=== PATIENT | female | born 1975 | race Caucasian/White ===

== ENCOUNTER 2020-04-16 16:03 | Outpatient (CLI) | payer BC, OTHER, SELFPAY ==
--- NOTE | ~2020-04-16 | MM_ITS ---
CORRECTED REPORT DESCRIPTION CHANGE. SEE BOLD/ITALIC TEXT BELOW. 04/17/20 sef EXAMINATION: MM screening nikunj BI w pancho HISTORY: Screening mammogram TECHNIQUE: Craniocaudal and mediolateral oblique 3-D tomosynthesis images were obtained and synthetic 2-D images were generated. CAD analysis was submitted and interpreted. COMPARISON: No prior mammogram is available for comparison at this institution. BREAST PARENCHYMAL COMPOSITION: There are scattered areas of fibroglandular density. FINDINGS: There is a biopsy marker associated with an approximately 12 mm circumscribed low-density mass in the lower inner quadrant of the right breast. This was reportedly benign. Minimal benign calcification of the breast. There is no evidence of suspicious mass, calcification, or architectural distortion to suggest malignancy in either breast.. IMPRESSION: 1. No mammographic evidence of malignancy. 2. Recommend routine screening mammography in one year. BI-RADS Category 2: Benign finding(s). Reviewed, dictated and finalized at location A. MTDD
== END 2020-04-16 16:04 | disposition home or self-care (01) ==
LOC: ANHIMG 16:04
PROVIDERS: PCP Family Medicine; Visit Provider Family Medicine
DX: Z12.31 Encounter for screening mammogram for malignant neoplasm of breast (principal)
CPT/HCPCS: 77063; 77067

== ENCOUNTER 2020-09-04 12:58 | Outpatient (CLI) | payer BC, OTHER, SELFPAY ==
--- NOTE | ~2020-09-04 | XR_ITS ---
XR_[id number]_CR 09/04/2020 13:39 Indication: Neck pain Procedure: 4 view cervical spine Comparison: No prior studies for comparison. Findings: There is multilevel facet hypertrophy. There is mild multilevel uncinate hypertrophy. Hui l anatomic alignment of the cervical spine. No fracture or traumatic malalignment. No prevertebral so ft tissue swelling. Odontoid process within normal limits. Lateral masses are normally aligned. Impression: 1: Mild cervical spondylosis. Reviewed, dictated and finalized at location B. Impression: 1: Mild cervical spondylosis.
--- NOTE | ~2020-09-04 | XR_ITS ---
EXAMINATION: XR shoulder RT min 2V DATE: 09/04/2020 13:40 INDICATION: Right shoulder pain. TECHNIQUE: 4 views of right shoulder were obtained. COMPARISON: Right shoulder radiographs 06/13/2019 FINDINGS: Bone alignment is normal. No fracture. Joint spaces are well maintained. IMPRESSION: 1. Normal right shoulder. Reviewed, dictated and finalized at location A. IMPRESSION: 1. Normal right shoulder.
== END 2020-09-04 12:59 | disposition home or self-care (01) ==
PROVIDERS: PCP Family Medicine; Visit Provider Physician Assistant
DX: M25.511 Pain in right shoulder (principal); M47.892 Other spondylosis, cervical region
CPT/HCPCS: 72040; 73030

== ENCOUNTER 2020-11-12 09:10 | Outpatient (CLI) | payer BC, OTHER, SELFPAY ==
[2020-11-12 09:42] LABS: Basophils Absolute Auto 0.1 K/mm3 (0.0-0.1); Basophils Percent Auto 0.6 % (0.2-1.2); Eosinophils Absolute Auto 0.3 K/mm3 (0-0.3); Hemoglobin 13.6 g/dL (12.0-15.0); Immature Granulocyte Absolute 0.04 K/mm3 (0.00-0.031); Immature Granulocyte Percent A 0.4 % (0-0.5); Lymphocytes Absolute Auto 4.04 K/mm3 (0.9-3.2); Lymphocytes Percent Auto 39.8 % (18.3-44.2); Mean Corpuscular HGB Conc 33.2 g/dl (32-36); Mean Corpuscular Hemoglobin 30.7 pg (26-34); Mean Corpuscular Volume 92.6 fl (80-100); Mean Platelet Volume 11.1 fl (7.4-10.4); Monocytes Percent Auto 10.1 % (2.6-8.5); Neutrophils Absolute Auto 4.7 K/mm3 (1.3-6.7); Neutrophils Percent Auto 46.1 % (45.5-73.1); Platelet Count Result 267 k/mm3 (150-375); Red Blood Count 4.43 M/mm3 (4.2-5.4); Red Cell Distribution Width 12.1 % (11.5-14.5); White Blood Count 10.1 K/mm3 (4.5-10.0)
[2020-11-12 09:47] LABS: Add Urine Microscopic? YES; Appearance Urine Clear (Clear); Bacteria Urine 2+ /hpf; Bilirubin Urine Negative (Negative); Blood Urine Negative (Negative); Color Urine Straw (Yellow); Glucose Urine UA Negative (Negative); Ketones Urine Negative (Negative); Leukocyte Esterase Ur Trace LEU/UL (NEGATIVE); Mucus Urine Rare /lpf; Nitrate Urine Negative (Negative); Protein Urine Negative (Negative); RBC Urine 0-2 /hpf (0-2); Specific Grav Ur 1.011 (1.001-1.035); Squamous Epithelial Cell Urine Many /hpf (Few); Urobilinogen Urine Negative mg/dL (<2.0)
[2020-11-12 09:55] LABS: Alanine Aminotransferase 31 U/L (4-35); Albumin Level 4.1 g/dL (3.5-5.1); Alkaline Phosphatase 76 U/L (38-126); Anion Gap 7 mmol/L (8-16); Aspartate Amino Transferase 29 U/L (14-36); Bilirubin,Total 0.4 mg/dL (0.2-1.3); Blood Urea Nitrogen 17 mg/dL (7-17); Calcium 9.4 mg/dL (8.4-10.2); Carbon Dioxide 28 mmol/L (22-30); Chloride 98 mmol/L (98-107); Cholesterol 238 mg/dL (0-200); Estimated Glomerular Filt Rate > 60; Glucose 99 mg/dL (65-105); HDL Direct 45 mg/dL; Potassium 4.2 mmol/L (3.4-5.0); Sodium 133 mmol/L (137-145); Triglycerides 268 mg/dL (<150)
[2020-11-12 10:06] LABS: LDL Cholesterol Direct 169 mg/dL
== END 2020-11-12 09:11 | disposition home or self-care (01) ==
LOC: ANHLAB 09:10
PROVIDERS: PCP Family Medicine; Visit Provider Physician Assistant
DX: R53.83 Other fatigue (principal); R63.5 Abnormal weight gain; N02.9 Recurrent and persistent hematuria with unspecified morphologic changes; Z13.220 Encounter for screening for lipoid disorders
CPT/HCPCS: 36415; 80053; 80061; 81001; 84443; 85025

== ENCOUNTER 2021-06-04 10:05 | Outpatient (CLI) | payer BC, OTHER, SELFPAY ==
--- NOTE | ~2021-06-04 | MM_ITS ---
EXAMINATION: MM screening nikunj BI w pancho HISTORY: Screening mammogram TECHNIQUE: Craniocaudal and mediolateral oblique 3-D tomosynthesis images were obtained and synthetic 2-D images were generated. CAD analysis was submitted and interpreted. COMPARISON: 04/16/2020 bilateral digital screening mammogram BREAST PARENCHYMAL COMPOSITION: There are scattered areas of fibroglandular density. FINDINGS: Again noted is a biopsy marker associated with a low-density circumscribed opacity in the l ower inner quadrant of the right breast, reportedly benign, unchanged since 04/16/2020. There is no evidence of suspicious mass, calcification, or architectural distortion to suggest malig rebecca in either breast. There has been no suspicious interval change. IMPRESSION: 1. No mammographic evidence of malignancy. 2. Recommend routine screening mammography in one year. BI-RADS Category 2: Benign finding(s). Reviewed, dictated and finalized at location A.
== END 2021-06-04 10:06 | disposition home or self-care (01) ==
LOC: ANHIMG 10:09
PROVIDERS: PCP Family Medicine; Visit Provider Family Medicine
DX: Z12.31 Encounter for screening mammogram for malignant neoplasm of breast (principal)
CPT/HCPCS: 77063; 77067

== ENCOUNTER 2021-09-24 14:35 | Outpatient (CLI) | payer BC, OTHER, SELFPAY ==
[2021-09-24 15:11] LABS: Basophils Absolute Auto 0.1 K/mm3 (0.0-0.1); Basophils Percent Auto 0.8 % (0.2-1.2); Eosinophils Absolute Auto 0.2 K/mm3 (0-0.3); Eosinophils Percent Auto 2.2 % (0-4.4); Hematocrit 40.3 % (37.0-47.0); Hemoglobin 13.3 g/dL (12.0-15.0); Immature Granulocyte Absolute 0.05 K/mm3 (0.00-0.031); Immature Granulocyte Percent A 0.5 % (0-0.5); Lymphocytes Absolute Auto 4.09 K/mm3 (0.9-3.2); Mean Corpuscular Hemoglobin 30.6 pg (26-34); Mean Corpuscular Volume 92.9 fl (80-100); Mean Platelet Volume 10.8 fl (7.4-10.4); Monocytes Absolute Auto 0.7 K/mm3 (0.1-0.6); Neutrophils Absolute Auto 5.3 K/mm3 (1.3-6.7); Neutrophils Percent Auto 50.5 % (45.5-73.1); Platelet Count Result 319 k/mm3 (150-375); Red Blood Count 4.34 M/mm3 (4.2-5.4); Red Cell Distribution Width 12.5 % (11.5-14.5); White Blood Count 10.5 K/mm3 (4.5-10.0)
[2021-09-24 15:17] LABS: Add Urine Microscopic? YES; Appearance Urine Cloudy (Clear); Bacteria Urine 1+ /hpf; Bilirubin Urine Negative (Negative); Blood Urine 2+ (Negative); Color Urine Straw (Yellow); Glucose Urine UA Negative (Negative); Ketones Urine Negative (Negative); Leukocyte Esterase Ur 3+ LEU/UL (NEGATIVE); Nitrate Urine Negative (Negative); Protein Urine Negative (Negative); Squamous Epithelial Cell Urine Moderate /hpf (Few); Urobilinogen Urine Negative mg/dL (<2.0); WBC Urine 16-20 /hpf (0-3)
[2021-09-24 15:25] LABS: Alanine Aminotransferase 28 U/L (4-35); Albumin Level 4.5 g/dL (3.5-5.1); Alkaline Phosphatase 95 U/L (38-126); Anion Gap 9 mmol/L (8-16); Aspartate Amino Transferase 32 U/L (14-36); Bilirubin,Total 0.3 mg/dL (0.2-1.3); Blood Urea Nitrogen 13 mg/dL (7-17); Calcium 9.3 mg/dL (8.4-10.2); Carbon Dioxide 26 mmol/L (22-30); Chloride 103 mmol/L (98-107); Cholesterol 281 mg/dL (0-200); Estimated Glomerular Filt Rate > 60; Glucose 91 mg/dL (65-110); HDL Direct 40 mg/dL; Potassium 3.9 mmol/L (3.4-5.0); Sodium 138 mmol/L (137-145); Triglycerides 339 mg/dL (<150)
[2021-09-24 15:36] LABS: LDL Cholesterol Direct 185 mg/dL
[2021-09-24 16:10] LABS: Specific Grav Ur 1.003 (1.001-1.035)
== END 2021-09-24 14:36 | disposition home or self-care (01) ==
LOC: ANHLAB 14:38
PROVIDERS: PCP Family Medicine; Visit Provider Nurse Practitioner Gerontology
DX: G47.00 Insomnia, unspecified (principal); I12.9 Hypertensive chronic kidney disease with stage 1 through stage 4 chronic kidney disease, or unspecified chronic kidney disease; N18.9 Chronic kidney disease, unspecified
CPT/HCPCS: 36415; 80053; 80061; 81001; 84443; 85025

== ENCOUNTER 2021-09-28 12:46 | Outpatient (CLI) | payer BC, OTHER, SELFPAY | END 2021-09-28 12:47 | disposition home or self-care (01) | LOC: ANHLAB 12:47 | PROVIDERS: PCP Family Medicine; Visit Provider Nurse Practitioner Gerontology | DX: R82.90 Unspecified abnormal findings in urine (principal) | CPT/HCPCS: 87086 ==

== ENCOUNTER 2021-10-13 10:17 | Outpatient (CLI) | payer BC, OTHER, SELFPAY ==
[2021-10-13 10:46] LABS: Basophils Absolute Auto 0.1 K/mm3 (0.0-0.1); Basophils Percent Auto 0.7 % (0.2-1.2); Eosinophils Absolute Auto 0.2 K/mm3 (0-0.3); Hematocrit 39.9 % (37.0-47.0); Hemoglobin 13.1 g/dL (12.0-15.0); Immature Granulocyte Absolute 0.03 K/mm3 (0.00-0.031); Immature Granulocyte Percent A 0.3 % (0-0.5); Lymphocytes Absolute Auto 3.44 K/mm3 (0.9-3.2); Lymphocytes Percent Auto 37.3 % (18.3-44.2); Mean Corpuscular HGB Conc 32.8 g/dl (32-36); Mean Corpuscular Volume 94.5 fl (80-100); Mean Platelet Volume 10.6 fl (7.4-10.4); Monocytes Absolute Auto 0.6 K/mm3 (0.1-0.6); Monocytes Percent Auto 6.9 % (2.6-8.5); Neutrophils Absolute Auto 4.9 K/mm3 (1.3-6.7); Neutrophils Percent Auto 52.8 % (45.5-73.1); Platelet Count Result 303 k/mm3 (150-375); Red Blood Count 4.22 M/mm3 (4.2-5.4); Red Cell Distribution Width 12.4 % (11.5-14.5); White Blood Count 9.2 K/mm3 (4.5-10.0)
[2021-10-13 10:56] LABS: Alanine Aminotransferase 25 U/L (4-35); Albumin Level 4.2 g/dL (3.5-5.1); Alkaline Phosphatase 78 U/L (38-126); Anion Gap 9 mmol/L (8-16); Aspartate Amino Transferase 27 U/L (14-36); Bilirubin,Total 0.3 mg/dL (0.2-1.3); Blood Urea Nitrogen 11 mg/dL (7-17); Calcium 9.1 mg/dL (8.4-10.2); Carbon Dioxide 24 mmol/L (22-30); Chloride 102 mmol/L (98-107); Estimated Glomerular Filt Rate > 60; Glucose 97 mg/dL (65-110); Potassium 3.8 mmol/L (3.4-5.0); Sodium 135 mmol/L (137-145); Uric Acid 4.6 mg/dL (2.5-7.5)
[2021-10-13 10:57] LABS: Hemoglobin A1C 5.1 % (<5.7)
[2021-10-13 11:20] LABS: Add Urine Microscopic? NO; Appearance Urine Clear (Clear); Bilirubin Urine Negative (Negative); Blood Urine Negative (Negative); Color Urine Yellow (Yellow); Glucose Urine UA Negative (Negative); Ketones Urine Negative (Negative); Leukocyte Esterase Ur Negative LEU/UL (Negative); Nitrate Urine Negative (Negative); Protein Urine Negative (Negative); Specific Grav Ur 1.011 (1.001-1.035); Urobilinogen Urine Negative mg/dL (<2.0)
[2021-10-13 11:27] LABS: Thyroid Stimulating Hormone 0.972 uIU/mL (0.465-4.680)
== END 2021-10-13 10:18 | disposition home or self-care (01) ==
PROVIDERS: PCP Family Medicine; Visit Provider Family Medicine
DX: R63.5 Abnormal weight gain (principal); I10 Essential (primary) hypertension; E79.0 Hyperuricemia without signs of inflammatory arthritis and tophaceous disease; Z13.1 Encounter for screening for diabetes mellitus; R30.0 Dysuria
CPT/HCPCS: 36415; 80053; 81003; 83036; 84443; 84550; 85025

== ENCOUNTER 2022-01-20 01:59 | Day surgery (SDC) | payer BC, OTHER, SELFPAY ==
[2022-01-13 14:59] VITALS: BMI 33.7
--- NOTE | 2022-01-19 13:31 | WPDANESEPPF ---
Anes - Initial Pre Proc Eval Procedure: Operation Date: 01/20/22 08:30 Proposed Procedures p Esophagogastroduodenoscopy - Diogo Presley DO Date/Time: 01/19/22 13:31 Surgeon: Diogo Presley DO Pre Op Diagnosis: GERD Patient Data Age: 46 Gender: F Height: 1.6 m Weight: 86.5 kg Allergies Allergy/AdvReac Type Severity Reaction Status Date / Time codeine Allergy Mild abdominal Verified 01/20/22 09:03 pain Home Medications Medication Instructions Recorded Confirmed Type cetirizine 10 mg tablet 10 mg PO DAILY #90 tablet 08/09/21 01/13/22 Rx carisoprodol 350 mg tablet 350 mg PO BID PRN #60 tablet 09/24/21 01/13/22 Rx montelukast 10 mg tablet 10 mg PO DAILY #90 tablet 09/24/21 01/13/22 Rx zolpidem 10 mg tablet 10 mg PO .qhs PRN #30 tablet 09/24/21 01/13/22 Rx fluticasone propionate [Flonase] 2 spray INTRANASAL DAILY 01/13/22 01/13/22 History lisinopril 2.5 mg PO DAILY 01/13/22 01/13/22 History Patient hx anesthesia problems: none Family hx anesthesia problems: none Results Review: All pre-operative results and documents have been reviewed as part of the pre-operative evaluation. [facility] Past Medical History Medical History (Updated 01/19/22 @ 13:32 by Alexandre Mcgee DO) Familial hematuria Hx of skin malignancy Hyperlipidemia Insomnia Seasonal allergies Uterine fibroid Surgical History Surgical History (Updated 01/19/22 @ 13:32 by Alexandre Mcgee DO) History of Hx laparoscopic cholecystectomy Family History Family History Mother Family history of malignant neoplasm Hypertension Father Family history of congenital heart disease Grandparent Family history of congenital heart disease Heart disease Cerebrovascular accident Other Family history of arthritis Family history of cardiovascular disease Family history of hypercholesterolemia Family history of migraine headaches Family history of thyroid disease Social History Social History Social History: Smoking status: Never smoker Second hand tobacco smoke exposure: No Alcohol intake: current Drinks per week: 3 Alcohol use details: Occasionally Substance use: never Substance use type: does not use Living arrangements: with family 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 Gender identity (if verbalized by the patient): Female Sexual Orientation (if Verbalized by the Patient): Straight or Heterosexual Spiritual care concerns: No Anes - Eval Final PreProcedure Day of Procedure 01/19/22 13:31 Patient weight: obese Heart: regular rate and rhythm Lungs: clear to auscultation and normal air movement Airway: Mallampati scale class II Neurological: alert and oriented Last oral intake: >/= 8 hours ASA classification: II Emergent: no Anesthetic plan: proceed Anesthesia type and monitoring: general GIVS and standard monitoring Results Review: All pre-operative results and documents have been reviewed as part of the pre-operative evaluation. Informed Consent: The patient's anesthetic plan and its attendant risks and benefits were discussed with the patient/family/POA. Questions were solicited and answers provided to the satisfaction of the patient/family/POA.
[2022-01-20 09:05] VITALS: BP 129/78; PULSE 75; RESP 18; TEMP 36.4; O2SAT 98
[2022-01-20] MEDS: LACTATED RINGERS 1,000 ML 150 ML IV CONT (09:17)
--- NOTE | 2022-01-20 10:07 | WPDHPUPDATE1 ---
History and Physical Update Update Date/Time: 01/20/22 10:07 History and Physical has been reviewed, including an updated exam of the patient. There are NO changes in the patient's condition. Risks, benefits, and alternatives have been discussed and questions answered. Patient agrees to proceed with procedure.
[2022-01-20] MEDS: BENZOCAINE (*SP) 60 ML SPRAY CAN (HURRICAINE) 1 SPRAY MUCOUS MEM (10:15)
[2022-01-20 10:34] VITALS: BP 101/61; PULSE 80; RESP 20; O2SAT 98
[2022-01-20 10:44] VITALS: BP 111/53; PULSE 78; RESP 15; O2SAT 99
[2022-01-20 10:54] VITALS: BP 106/61; PULSE 63; RESP 14; O2SAT 98
== END 2022-01-20 11:07 | disposition home or self-care (01) ==
PROVIDERS: PCP Family Medicine; Visit Provider Surgery
PROC: 0DJ08ZZ Inspection of Upper Intestinal Tract, Via Natural or Artificial Opening Endoscopic (ICD-10-PCS; CPT 43235; principal; 2022-01-20 08:30)
DX: K21.9 Gastro-esophageal reflux disease without esophagitis (principal); K31.7 Polyp of stomach and duodenum; K29.50 Unspecified chronic gastritis without bleeding; K44.9 Diaphragmatic hernia without obstruction or gangrene; R31.9 Hematuria, unspecified; G47.00 Insomnia, unspecified
CPT/HCPCS: 43239; 87081; 88305; J2704; J7120

== ENCOUNTER 2022-07-08 14:49 | Outpatient (CLI) | payer BC, OTHER, SELFPAY ==
--- NOTE | ~2022-07-08 | MM_ITS ---
EXAMINATION: MM screening nikunj BI w pancho HISTORY: Screening TECHNIQUE: Craniocaudal and mediolateral oblique 3-D tomosynthesis images were obtained and synthetic 2-D images were generated. CAD analysis was submitted and interpreted. COMPARISON: Comparison to multiple prior studies sequentially, with oldest reviewed study dated 02/2020. BREAST PARENCHYMAL COMPOSITION: Breast composed of scattered areas of fibroglandular density FINDINGS: The right breast is stable without evidence for malignancy. There is a cluster of pleomorph ic calcifications in the upper outer quadrant of the left breast. There is a possible nodular asymmet ry laterally in the left breast on CC view adjacent to the calcifications. IMPRESSION: 1. Clustered indeterminate left breast calcifications with adjacent nodular asymmetry. 2. Additional mammographic views and possible breast ultrasound are recommended. BI-RADS Category 0: Incomplete: Needs additional imaging evaluation. Reviewed, dictated and finalized at location A. IMPRESSION: 1. Clustered indeterminate left breast calcifications with adjacent nodular asy mmetry. 2. Additional mammographic views and possible breast ultrasound are recommended . BI-RADS Category 0: Incomplete: Needs additional imaging evaluation.
== END 2022-07-08 14:50 | disposition home or self-care (01) ==
LOC: ANHIMG 14:52
PROVIDERS: PCP Family Medicine; Visit Provider Family Medicine
DX: Z12.31 Encounter for screening mammogram for malignant neoplasm of breast (principal); R92.8 Other abnormal and inconclusive findings on diagnostic imaging of breast
CPT/HCPCS: 77063; 77067

== ENCOUNTER 2022-08-08 12:45 | Outpatient (CLI) | payer BC, OTHER, SELFPAY ==
--- NOTE | ~2022-08-08 | MMUS_ITS ---
EXAMINATION: MM diagnostic nikunj LT w pancho, US breast LT limited HISTORY: Clustered indeterminate left breast calcifications with adjacent nodular asymmetry reported on 07/08/2022 screening mammogram TECHNIQUE: Additional 3-D ML tomosynthesis images of the left breast were performed and synthetic 2-D images were generated. ML, MLO and CC magnification views. CAD analysis was submitted and interprete d. High resolution breast ultrasound was performed. COMPARISON: 07/08/2022, 06/04/2021, 04/2020 screening mammogram examinations radiology FINDINGS: MAMMOGRAPHIC FINDINGS: There are scattered solitary grouped microcalcifications, some with milk of calcium ULTRASOUND: . No malignant features are evident. Ultrasound of the upper outer and lower-outer quadrants of the left breast reveals no suspicious mass or shadowing, cyst or other significant finding. IMPRESSION: 1. Benign microcalcifications; no mammographic or sonographic evidence of malignancy 2. Routine annual mammographic screening is recommended BI-RADS Category 2: Benign finding(s). Reviewed, dictated and finalized at location A. IMPRESSION: 1. Benign microcalcifications; no mammographic or sonographic evidence of malig rebecca 2. Routine annual mammographic screening is recommended BI-RADS Category 2: Benign finding(s). IMPRESSION: 1. Benign microcalcifications; no mammographic or sonographic evidence of malig reebcca 2. Routine annual mammographic screening is recommended BI-RADS Category 2: Benign finding(s).
== END 2022-08-08 12:46 | disposition home or self-care (01) ==
LOC: ANHIMG 12:46
PROVIDERS: PCP Family Medicine; Visit Provider Physician Assistant
DX: R92.8 Other abnormal and inconclusive findings on diagnostic imaging of breast (principal)
CPT/HCPCS: 76642; 77061; 77065; G0279

== ENCOUNTER 2022-12-29 08:48 | Outpatient (CLI) | payer BC, OTHER, SELFPAY ==
[2022-12-29 09:16] LABS: Basophils Absolute Auto 0.1 K/mm3 (0.0-0.1); Basophils Percent Auto 0.6 % (0.2-1.2); Eosinophils Absolute Auto 0.2 K/mm3 (0-0.3); Hemoglobin 12.6 g/dL (12.0-15.0); Immature Granulocyte Absolute 0.02 K/mm3 (0.00-0.031); Immature Granulocyte Percent A 0.2 % (0-0.5); Lymphocytes Absolute Auto 3.03 K/mm3 (0.9-3.2); Lymphocytes Percent Auto 32.7 % (18.3-44.2); Mean Corpuscular HGB Conc 32.3 g/dl (32-36); Mean Corpuscular Hemoglobin 28.6 pg (26-34); Mean Corpuscular Volume 88.4 fl (80-100); Monocytes Absolute Auto 0.8 K/mm3 (0.1-0.6); Monocytes Percent Auto 8.4 % (2.6-8.5); Neutrophils Absolute Auto 5.2 K/mm3 (1.3-6.7); Neutrophils Percent Auto 56.1 % (45.5-73.1); Platelet Count Result 291 k/mm3 (150-375); Red Blood Count 4.41 M/mm3 (4.2-5.4); Red Cell Distribution Width 12.8 % (11.5-14.5); White Blood Count 9.3 K/mm3 (4.5-10.0)
[2022-12-29 10:03] LABS: Thyroid Stimulating Hormone Reflex 0.951 uIU/mL (0.465-4.68)
[2022-12-29 10:12] LABS: Alanine Aminotransferase 25 U/L (6-35); Alkaline Phosphatase 94 U/L (38-126); Anion Gap 4 mmol/L (8-16); Aspartate Amino Transferase 27 U/L (14-36); Bilirubin,Total 0.5 mg/dL (0.2-1.3); Blood Urea Nitrogen 12 mg/dL (7-17); Carbon Dioxide 28 mmol/L (22-30); Chloride 103 mmol/L (98-107); Cholesterol 255 mg/dL (0-200); Estimated Glomerular Filt Rate > 60; Glucose 99 mg/dL (65-110); HDL Direct 36 mg/dL; Potassium 4.2 mmol/L (3.4-5.0); Sodium 135 mmol/L (137-145); Triglycerides 268 mg/dL (<150)
[2022-12-29 10:24] LABS: LDL Cholesterol Direct 149 mg/dL
== END 2022-12-29 08:49 | disposition home or self-care (01) ==
LOC: ANHLAB 08:49
PROVIDERS: PCP Family Medicine; Visit Provider Nurse Practitioner Gerontology
DX: I12.9 Hypertensive chronic kidney disease with stage 1 through stage 4 chronic kidney disease, or unspecified chronic kidney disease (principal); N18.9 Chronic kidney disease, unspecified
CPT/HCPCS: 36415; 80053; 80061; 84443; 85025

== ENCOUNTER 2023-09-01 09:53 | Outpatient (CLI) | payer BC, OTHER, SELFPAY ==
[2023-09-01 10:33] LABS: Cholesterol 239 mg/dL (0-200); HDL Direct 42 mg/dL; Triglycerides 316 mg/dL (<150)
[2023-09-01 10:37] LABS: Alanine Aminotransferase 26 U/L (6-35); Albumin Level 4.1 g/dL (3.5-5.1); Alkaline Phosphatase 86 U/L (38-126); Anion Gap 7 mmol/L (8-16); Aspartate Amino Transferase 30 U/L (14-36); Bilirubin,Total 0.5 mg/dL (0.2-1.3); Blood Urea Nitrogen 13 mg/dL (7-17); Carbon Dioxide 26 mmol/L (22-30); Chloride 102 mmol/L (98-107); Estimated Glomerular Filt Rate > 60; Glucose 93 mg/dL (65-110); Potassium 3.7 mmol/L (3.4-5.0); Sodium 135 mmol/L (137-145)
[2023-09-01 10:44] LABS: LDL Cholesterol Direct 137 mg/dL
[2023-09-01 11:06] LABS: Creatinine Urine 69.4 mg/dL
[2023-09-01 11:24] LABS: MALB Creatinine Ratio < 8.6 mg/g (0-30); Microalbumin Urine Random < 6.0 mg/L (0-16.7)
== END 2023-09-01 09:54 | disposition home or self-care (01) ==
PROVIDERS: Nurse Practitioner Gerontology; PCP Family Medicine; Visit Provider Physician Assistant
DX: N18.9 Chronic kidney disease, unspecified (principal); E78.5 Hyperlipidemia, unspecified
CPT/HCPCS: 36415; 80053; 80061; 82043

== ENCOUNTER 2023-09-15 14:48 | Outpatient (CLI) | payer BC, OTHER, SELFPAY ==
--- NOTE | ~2023-09-15 | MM_ITS ---
EXAMINATION: MM screening [facility] BI w pancho HISTORY: Screening mammogram TECHNIQUE: Craniocaudal and mediolateral oblique 3-D tomosynthesis images were obtained and synthetic 2-D images were generated. CAD analysis was submitted and interpreted. COMPARISON: 08/08/2022, 07/08/2022, 06/04/2021, 04/16/2020 BREAST PARENCHYMAL COMPOSITION: The breasts are heterogeneously dense, which may obscure small masses . FINDINGS: There is a stable mass with biopsy change in the lower inner right breast. No suspicious ma ss, calcification, or architectural distortion are identified in either breast to suggest malignancy. There has been no suspicious interval change. IMPRESSION: 1. No mammographic evidence of malignancy. 2. Recommend routine screening mammography in one year. BI-RADS Category 2: Benign finding(s). Reviewed, dictated and finalized at location A.
== END 2023-09-15 14:49 | disposition home or self-care (01) ==
LOC: ANHIMG 14:49
PROVIDERS: PCP Family Medicine; Visit Provider Physician Assistant
DX: Z12.31 Encounter for screening mammogram for malignant neoplasm of breast (principal)
CPT/HCPCS: 77063; 77067

== ENCOUNTER 2024-04-09 08:26 | Outpatient (CLI) | payer BC, OTHER, SELFPAY ==
[2024-04-09 08:44] LABS: Basophils Absolute Auto 0.1 K/mm3 (0.0-0.1); Basophils Percent Auto 0.5 % (0.2-1.2); Eosinophils Absolute Auto 0.2 K/mm3 (0-0.3); Hemoglobin 11.2 g/dL (12.0-15.0); Immature Granulocyte Absolute 0.03 K/mm3 (0.00-0.031); Immature Granulocyte Percent A 0.3 % (0-0.5); Lymphocytes Absolute Auto 2.89 K/mm3 (0.9-3.2); Lymphocytes Percent Auto 29.1 % (18.3-44.2); Mean Corpuscular HGB Conc 31.1 g/dl (32-36); Mean Corpuscular Hemoglobin 26.1 pg (26-34); Mean Corpuscular Volume 83.9 fl (80-100); Mean Platelet Volume 11.4 fl (7.4-10.4); Monocytes Absolute Auto 0.8 K/mm3 (0.1-0.6); Monocytes Percent Auto 7.6 % (2.6-8.5); Neutrophils Percent Auto 60.5 % (45.5-73.1); Platelet Count Result 309 k/mm3 (150-375); Red Blood Count 4.29 M/mm3 (4.2-5.4); Red Cell Distribution Width 14.1 % (11.5-14.5); White Blood Count 9.9 K/mm3 (4.5-10.0)
[2024-04-09 08:54] LABS: Alanine Aminotransferase 22 U/L (6-35); Alkaline Phosphatase 90 U/L (38-126); Anion Gap 7 mmol/L (4-12); Aspartate Amino Transferase 28 U/L (14-36); Bilirubin,Total 0.6 mg/dL (0.2-1.3); Blood Urea Nitrogen 13 mg/dL (7-17); Calcium 9.2 mg/dL (8.4-10.2); Carbon Dioxide 24 mmol/L (22-30); Chloride 107 mmol/L (98-107); Cholesterol 152 mg/dL (0-200); Estimated Glomerular Filt Rate > 60; Glucose 103 mg/dL (65-110); HDL Direct 39 mg/dL; Potassium 4.1 mmol/L (3.4-5.0); Sodium 138 mmol/L (137-145); Triglycerides 203 mg/dL (<150)
[2024-04-09 09:05] LABS: LDL Cholesterol Direct 89 mg/dL
== END 2024-04-09 08:27 | disposition home or self-care (01) ==
LOC: ANHLAB 08:29
PROVIDERS: PCP Family Medicine; Visit Provider Physician Assistant
DX: E78.5 Hyperlipidemia, unspecified (principal); I10 Essential (primary) hypertension
CPT/HCPCS: 36415; 80053; 80061; 85025

== ENCOUNTER 2024-10-24 14:38 | Outpatient (CLI) | payer BC, OTHER, SELFPAY ==
--- NOTE | ~2024-10-24 | MM_ITS ---
EXAMINATION: MM screening nikunj BI w pancho HISTORY: Screening TECHNIQUE: Craniocaudal and mediolateral oblique 3-D tomosynthesis images were obtained and synthetic 2-D images were generated. CAD analysis was submitted and interpreted. COMPARISON: Comparison to multiple prior studies sequentially, with oldest reviewed study dated 02/2020. BREAST PARENCHYMAL COMPOSITION: Not dense: There are scattered areas of fibroglandular density. FINDINGS: There is no evidence of suspicious mass, calcification, or architectural distortion to sugg est malignancy in either breast. There has been no suspicious interval change. IMPRESSION: 1. No mammographic evidence of malignancy. 2. Recommend routine screening mammography in one year. BI-RADS Category 1: Negative Reviewed, dictated and finalized at location B. 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
== END 2024-10-24 14:39 | disposition home or self-care (01) ==
LOC: ANHIMG 14:39
PROVIDERS: PCP Family Medicine; Visit Provider Family Medicine
DX: Z12.31 Encounter for screening mammogram for malignant neoplasm of breast (principal)
CPT/HCPCS: 77063; 77067

== ENCOUNTER 2025-10-20 10:02 | Outpatient (CLI) | payer BC, OTHER, SELFPAY ==
[2025-10-20 10:32] LABS: Hematocrit 38.3 % (37.0-47.0); Hemoglobin 12.2 g/dL (12.0-15.0); Immature Granulocyte Percent A 0.3 % (0-0.5); Lymphocytes Absolute Auto 2.51 K/mm3 (0.9-3.2); Mean Corpuscular HGB Conc 31.9 g/dl (32-36); Mean Corpuscular Hemoglobin 28.8 pg (26-34); Mean Corpuscular Volume 90.3 fl (80-100); Nucleated Red Blood Cells Absolute Auto 0.000 K/mm3 (0.0-0.012); Nucleated Red Blood Cells Perc 0.0 % (0.0-0.2); Platelet Count Result 312 k/mm3 (150-375); Red Blood Count 4.24 M/mm3 (4.2-5.4); White Blood Count 7.8 K/mm3 (4.5-10.0)
[2025-10-20 10:34] LABS: Add Urine Microscopic? YES; Appearance Urine Cloudy (Clear); Glucose Urine UA Negative (Negative); Leukocyte Esterase Ur 1+ LEU/UL (Negative); Nitrate Urine Negative (Negative); Non Pathogenic Casts 0-2; Specific Grav Ur 1.014 (1.001-1.035)
[2025-10-20 10:53] LABS: Alanine Aminotransferase 146 U/L (6-35); Albumin Level 4.2 g/dL (3.5-5.1); Alkaline Phosphatase 133 U/L (38-126); Anion Gap 5 mmol/L (4-12); Aspartate Amino Transferase 117 U/L (14-36); Bilirubin,Total 0.4 mg/dL (0.2-1.3); Blood Urea Nitrogen 9 mg/dL (7-17); Calcium 9.3 mg/dL (8.4-10.2); Carbon Dioxide 27 mmol/L (22-30); Chloride 104 mmol/L (98-107); Cholesterol 160 mg/dL (0-200); Estimated Glomerular Filt Rate 59; Glucose 99 mg/dL (65-110); HDL Direct 48 mg/dL; Potassium 4.2 mmol/L (3.4-5.0); Sodium 136 mmol/L (137-145); Total Protein 7.7 g/dL (6.3-8.2); Triglycerides 175 mg/dL (<150)
[2025-10-20 11:09] LABS: Uric Acid 5.7 mg/dL (2.5-7.5)
[2025-10-20 11:24] LABS: Thyroid Stimulating Hormone 1.040 uIU/mL (0.465-4.680)
== END 2025-10-20 10:03 | disposition home or self-care (01) ==
PROVIDERS: Physician Assistant Medical; PCP Family Medicine; Visit Provider Student in an Organized Health Care Education/Training Program
DX: E78.2 Mixed hyperlipidemia (principal); E55.9 Vitamin D deficiency, unspecified; N02.9 Recurrent and persistent hematuria with unspecified morphologic changes; M79.676 Pain in unspecified toe(s); Z13.29 Encounter for screening for other suspected endocrine disorder
CPT/HCPCS: 36415; 80053; 80061; 81001; 82652; 84443; 84550; 85025

== ENCOUNTER 2025-10-29 13:54 | Outpatient (CLI) | payer BC, OTHER, SELFPAY ==
--- NOTE | ~2025-10-29 | MM_ITS ---
EXAMINATION: MM screening [facility] BI w pancho HISTORY: Screening TECHNIQUE: Craniocaudal and mediolateral oblique 3-D tomosynthesis images were obtained and synthetic 2-D images were generated. CAD analysis was submitted and interpreted. COMPARISON: Comparison to multiple prior studies sequentially, with oldest reviewed study dated 06/04/2021. BREAST PARENCHYMAL COMPOSITION: Not Dense: There are scattered areas of fibroglandular density. FINDINGS: There is no evidence of suspicious mass, calcification, or architectural distortion to suggest malignancy in either breast. Scattered benign-appearing calcifications are present. IMPRESSION: 1. No mammographic evidence of malignancy. 2. Recommend routine screening mammography in one year. BI-RADS Category 2: Benign finding(s). Reviewed, dictated and finalized at location A. LINE CATALYST OPERATOR
--- OUTSIDE RECORDS SUMMARY | 2025-10-29 16:26 | XMS_ITS | Encounter Summary ---
Author Organization [facility] Address [address] [place] [address] Care Team Providers Care Nutritionist Public Health Name Role Phone [address] Primary Care Prov ider Matilde Moreno MD Primary Care Provider + Encounter Details Date Type Department Care Team (Late st Contact Info) Description 08/13/2020 Lab Requisition [facility] [address] [place] [address] Casimiro Martínez MD [address] [facility] [address] [address] [place] [address] Social History Tobacco Use Types Packs/Day Years Used Date Smoking Tobacco: Never Assessed Comments Unknown Sex and Gender Information Value Date Recorded Sex Assigned at Not on file Legal Sex Female 4:03 AM CDT Gender Identity Not on file Sexual Orientation Not on file documented as of this encounter Plan of Treatment Not on file documented as of this encounter Procedures Procedure Name Priority Date/Time Associated Diagnosis Comments DERMATOPATHOLOGY Routine 08/12/2020 12:0 0 AM CDT documented in this encounter Results * DERMATOPATHOLOGY (08/12/2020 12:00 AM CDT) Case Report Dermatopathology Report Case: [id number] Authorizing Provider: Casimiro Martínez MD Collected: 08/12/2020 12:00 AM Ordering Location: [facility] Received: 08/13/2020 08:19 AM Pathologist: Nina Glover MD Specimen: Skin, right medial cheek 0 2:15 PM CDT DERMATOPATHOLOGY LABORATORY Final Diagnosis Specimen A. SKIN, right medial cheek: ANGIOFIBROMA (FIBROUS PAPULE) (D21.0) (see microscopic description) 0 2:15 PM CDT DERMATOPATHOLOGY LABORATORY at 1415 CDT Clinical History Beka hyperplasia vs BCC vs angioma. Path # [id number]. 0 2:15 PM CDT DERMATOPATHOLOGY LABORATORY Gross Description Specimen A: Received is one formalin filled container labeled with the patient's name and designated right medial cheek. The specimen consists of a shave biopsy measuring [id number]. Jar 0. 0 2:15 PM CDT DERMATOPATHOLOGY LABORATORY Microscopic Description Specimen A. SKIN, right medial cheek: This dome-shaped lesion contains dilated blood vessels, coarse collagen bundles, and stellate fibroblasts. There is no evidence of epithelial dysplasia or malignancy in multiple deeper sections examined. 0 2:15 PM CDT DERMATOPATHOLOGY LABORATORY Disclaimer An external and internal positive and negative controls are appropriate for the histochemical, immunohistochemical and immunofluorescence stain(s) in this case (if any), except where stated explicitly. The performance characteristics of the stain(s) cited in this report were developed and its performance characteristic determined by the Dermatopathology Laboratory at [facility], directed by Dr. Omar Hammer. These tests need not be, and therefore are not, approved by the [place] Food and Drug Administration. The tests are used for clinical purposes. Billing Codes Specimen Charges Stain Charges 37522 1 0 2:15 PM CDT DERMATOPATHOLOGY LABORATORY Embedded Images 0 2:15 PM CDT DERMATOPATHOLOGY LABORATORY Pathology/Cytolog y TISSUE SPECIMEN FROM SKIN / Unknown 08/12/2020 08/13/2020 8:19 AM CDT us Casimiro Martínez MD LAB - PATHOLOGY/CYTOLOGY ORDER DERICK Final Result DERMATOPATHOLOGY LABORATORY [facility] - Department of Dermatology [address] [phone] documented in this encounter Visit Diagnoses Not on filedocumented in this encounter Care Teams Nutritionist Public Health Relationship Specialty Start Date End Date [facility] [address] [place] [address] PCP - General 04/24/19 01/24/22 Matilde Moreno MD [address] [place] [address] PCP - General 01/25/22 documented as of this encounter
--- OUTSIDE RECORDS SUMMARY | 2025-10-29 16:26 | XMS_ITS | Clinical Summary ---
Author Organization [facility] Address [address] [place] [address] Care Team Providers Care Cmm Operator Name Role Phone Matilde Moreno MD Primary Care Provider + Source Comments [facility],non-owned Affiliates and Associated Physician Practices is amultiple site organization consisting of ambulatory clinics and hospital sitesin [place], [place], [place] and [place]. This disclosure is being madepursuant to the Care Everywhere program and may not contain all information available regarding this patient. Last updated 18.[facility] Social History Tobacco Use Types Packs/Day Years Used Date Smoking Tobacco: Never Assessed Comments Unknown Sex and Gender Information Value Date Recorded Sex Assigned at Not on file Legal Sex Female 4:03 AM CDT Gender Identity Not on file Sexual Orientation Not on file Plan of Treatment Health Maintenance Due Date Last Done Comments COLOGUARD (AGES 45-75) - COL ON CA SCREENING 1975 COLON MONITORING 1975 COLONOSCOPY - COLON CA SCREENING 1975 CT COLONOGRAPHY - COLON CA SCREENING 1975 Colorectal Cancer Screening 1975 FIT - COLON CA SCREENING 1975 FLEX SIG - COLON CA SCREENING 1975 LIPID TESTING 1975 MAMMOGRAM 1975 HIV SCREENING 1990 HEPATITIS C SCREENING 07/03/1993 DTAP/TDAP/TD VACCINES (1 - Tdap) 1994 HEPATITIS B VACCINE (1 of 3 - 19+ 3-dose series) 1994 DEPRESSION SCREENING 11/13/2024 PNEUMOCOCCAL VACCINE 50+ (1 of 1 - PCV) 2025 ZOSTER VACCINE (1 of 2) 2025 COVID-19 VACCINE (4 - 2024-2 6 season) 2025 11/09/2021, 02/06/2021, 01/12/2021 INFLUENZA VACCINE (#1) 2025 , 01/30/2022 HIB VACCINE Aged Out No longer eligi ble based on patient's age to complete this topic HPV VACCINE Aged Out No longer eligi ble based on patient's age to complete this topic MENINGOCOCCAL (Group B) VACCINE SHARED DECISION-MAKING Aged Out No longer eligible based on patient's age to complete this topic MENINGOCOCCAL GROUPS A/C/Y/W VACCINE Aged Out No longer eligible b ased on patient's age to complete this topic Insurance [place] [address] [facility] Care Teams Cmm Operator Relationship Specialty Start Date End Date Matilde Moreno MD [address] [place], [place] [id number] PCP - General 01/25/22
--- OUTSIDE RECORDS SUMMARY | 2025-10-29 16:26 | XMS_ITS | Clinical Summary ---
Author Organization [facility] Address [address] [place] [address] Care Team Providers Care Database Security Expert Name Role Phone Unavailable Primary Care Provider Unavailabl e Social History Tobacco Use Types Packs/Day Years Used Date Smoking Tobacco: Never Assessed Comments Unknown Sex and Gender Information Value Date Recorded Sex Assigned at Not on file Legal Sex Female 7:57 PM CDT Gender Identity Not on file Sexual Orientation Not on file Plan of Treatment Health Maintenance Due Date Last Done Comments Cervical Cancer Screening Pa p Smear (Age 30 to 64) Every 3 Years 1975 Colorectal Cancer Screening Colonoscopy (10 Years) 1975 Annual Physical 1978 Hepatitis C 1993 DTaP, Tdap and Td Vaccines ( 1 - Tdap) 1994 Hepatitis B Vaccines (1 of 3 - 19+ 3-dose series) 1994 Cervical Cancer Screening Pa p with HPV Testing (Age 30 to 64) Every 5 Years 2005 Cervical Cancer Screening with HPV 2005 Mammogram Screening 2015 Pneumococcal Vaccine: 50+ Ye ars (1 of 1 - PCV) 2025 Zoster Vaccines (1 of 2) 2025 COVID-19 Vaccine ( - 2024-2 6 season) 2025 Influenza Adult (#1) 2025 Hepatitis A Vaccines Aged Out No long er eligible based on patient's age to complete this topic Meningococcal B Vaccine Aged Out No l onger eligible based on patient's age to complete this topic Meningococcal Vaccine Aged Out No sebastian damian eligible based on patient's age to complete this topic RSV Immunizations Under 20 Months Aged Out No longer eligible based on patient's age to complete this topic
--- OUTSIDE RECORDS SUMMARY | 2025-10-29 16:27 | XMS_ITS | Clinical Summary ---
Author Organization [facility] Address [address] [place] [id number] Phone Care Team Providers Care Shaft Sinker Name Role Phone Unavailable Primary Care Provider Unavailabl e Allergies Active Allergy Reactions Criticality Noted Date Comments Codeine Medications acetaminophen (TYLENOL 8 HOUR) 650 MG 8 hr tablet as dir prn 0 10/21/2018 Active lisinopril (PRINIVIL,ZESTRI L) 5 MG tablet 1 daily 0 10/21/2018 Acti ve Multiple Vitamins-Mineral s (MULTIVITAMIN ADULT) tablet 1 daily 0 10/21/2018 Activ e cetirizine (CETIRIZINE HCL CHILDRENS) 10 MG chewable tablet 1 daily 0 10/21/2018 Act sin montelukast (SINGULAIR) 10 MG tablet 1 daily 0 10/21/2018 Active Active Problems Problem Noted Date Diagnosed Date Blood in urine 10/22/2018 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 10/22/2018 Calculus of gallbladder with out cholecystitis without obstruction 10/22/2018 Family History Medical History Relation Comments Hypertensive disorder Father Hypertensive disorder Mother Kidney disease Neg Hx Relation Status Comments Father Mother Social History Tobacco Use Types Packs/Day Years Used Date Smoking Tobacco: Never Smokeless Tobacco: Never Alcohol Use Standard Drinks/Week Comments Yes 0 (1 standard drink = 0.6 oz pur e alcohol) Alcoholic Drinks/day: rare Comments Unknown Sex and Gender Information Value Date Recorded Sex Assigned at Not on file Legal Sex Female 7:24 AM MST Gender Identity Not on file Sexual Orientation Not on file Last Filed Vital Signs Vital Sign Reading Time Taken Comments Blood Pressure 124/70 10/22/2018 12:01 AM SURFACE WATER MANAGER Pulse 72 10/22/2018 12:01 AM SURFACE WATER MANAGER Temperature - - Respiratory Rate - - Oxygen Saturation - - Inhaled Oxygen Concentration - - Weight 75.8 kg (167 lb) 10/22/2018 12:01 AM SURFACE WATER MANAGER Height 152.4 cm (5') 10/22/2018 12:01 AM SURFACE WATER MANAGER Body Mass Index 32.61 10/22/2018 12:01 AM SURFACE WATER MANAGER Plan of Treatment Health Maintenance Due Date Last Done Comments Influenza Vaccine (#1) 2025
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
--- OUTSIDE RECORDS SUMMARY | 2025-10-29 16:27 | XMS_ITS | Clinical Summary ---
Author Organization [facility] Address [address] [place] [address] Care Team Providers Care Administrative Office Assistant Name Role Phone Matilde Moreno MD Primary Care Provider Allergies No known active allergies Medications lisinopriL (PRINIVIL,ZESTR IL) 2.5 mg tablet Take 1 tablet (2.5 mg total) by mouth daily Active cetirizine (ZyrTEC) 10 mg chewable tablet Take 1 tablet (10 mg total) by mouth daily Active fluticasone propionate (FLONASE) 50 mcg/actuation nasal spray Administer 1 spray into each nostril daily Active pantoprazole DR (PROTONIX) 40 mg EC tablet Take 1 tablet (40 mg total) by mouth daily Active montelukast (SINGULAIR) 10 mg tablet Take 1 tablet (10 mg total) by mouth nightly Active zolpidem (AMBIEN) 10 mg tablet Take 1 tablet (10 mg total) by mouth nightly as needed 1 3 Active fe-gzp-rfblr-ca lcium carb-K1 400 mcg-500 mg calcium-20 mcg tablet Take 1 capsule by mouth daily Active vitamin D3-vitamin K2 25 mcg (1,000 unit)-90 mcg tablet,disinteg rating Take 1 tablet by mouth daily Active magnesium hydroxide (YOUNG CHEWS) 311 mg tablet,chewable chewable tablet Take 66 mg by mouth daily Takes 2 gummies per day (66mg per daily dose) Active Active Problems No known active problems Surgical History Surgery Date Site/Laterality Comments CHOLECYSTECTOMY UPPER GASTROINTESTINAL ENDOSCOPY SECTION Medical History Medical History Date Comments Hypertension GERD (gastroesophageal reflux disease) Cancer (HCC) Skin CA (has bee n removed) Social History Tobacco Use Types Packs/Day Years Used Date Smoking Tobacco: Never Tobacco Cessation:Counseling Given: Not Answered AUDIT-C Answer Date Recorded Q1: How often do you have a drink containing alc ohol? 2-3 times a week 07/26/2023 Q2: How many drinks containi ng alcohol do you have on a typical day when you are drinking? 1 or 2 07/26/2023 Q3: How often do you have si x or more drinks on one occasion? Never 07/26/2023 Personal Safety Answer Date Recorded Have you ever been in or are you currently in a harmful physical or emotional relationship or is someone making you feel afraid or unsafe? 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 Gender Identity Not on file Sexual Orientation Not on file Last Filed Vital Signs Vital Sign Reading Time Taken Comments Blood Pressure 106/74 07/26/2023 9:25 AM CDT Pulse 52 07/26/2023 9:35 AM CDT Temperature 36.9 C (98.4 F) 07/26/2023 8:52 AM CDT Respiratory Rate 17 07/26/2023 9:35 AM CDT Oxygen Saturation 100% 07/26/2023 9:35 AM CDT Inhaled Oxygen Concentration - - Weight 88.8 kg (195 lb 12.3 oz) 07/26/2023 6:25 AM CDT Height 160 cm (5' 3) 07/26/2023 6:25 AM CDT Body Mass Index 34.68 07/26/2023 6:25 AM CDT Plan of Treatment Health Maintenance Due Date Last Done Comments Breast Cancer Screening-Mammogram 1975 Cervical Cancer Screening 1975 Colon Cancer Screening-Colonoscopy 1975 Depression Screening 1975 Hepatitis C Screening 1975 Regular Well Visit/Exam 18-64 1993 DTaP/Tdap/Td Vaccine (2 - Td or Tdap) 03/27/2017 03/27/2007, 03/07/2000 Zoster Vaccine (1 of 2) 2025 Covid-19 Vaccine (4 - 2024-2 6 season) 2025 11/09/2021, 02/06/2021, 01/12/2021 Influenza Vaccine (#1) 2025 2, 01/30/2022 Hepatitis B Screening Completed 06/06/2002 , 05/11/2002 Pneumococcal vaccine <65 Aged Out No longer eligible based on patient's age to complete this topic Insurance [facility] [place] [place] [address] [facility] CLAIMS Care Teams Administrative Office Assistant Relationship Specialty Start Date End Date Matilde Moreno MD [address] [facility] [address] [place] [address] PCP - General Family Medicine 07/18/23
--- OUTSIDE RECORDS SUMMARY | 2025-10-29 16:27 | XMS_ITS | Clinical Summary ---
Author Organization [facility] Address [address] [place] [address] Phone Care Team Providers Care Nut Chopper Name Role Phone Unavailable Primary Care Provider Unavailabl e Medications zolpidem (AMBIEN) 10 mg tablet 3 Active pantoprazole (PROTONIX) 40 mg Tablet, Delayed Release (E.C.) 2 Active omeprazole (PriLOSEC) 40 mg Capsule, Delayed Release(E.C.) 2 Active montelukast (SINGULAIR) 10 mg tablet 5 Active magnesium hydroxide (MILK OF MAGNESIA) 311 mg Tablet, Chewable Take 66 mg by mouth daily. Active lisinopriL (PRINIVIL) 2.5 mg tablet 5 Active fluticasone propionate (FLONASE) 50 mcg/spray [place], Suspension nasal inhaler Administer 1 [place] in each nostril daily. Active Vitamin D3-Menaquinone 7 25 mcg (1,000 unit)-90 mcg Tablet, Rapid Dissolve Take 1 Tablet by mouth daily. Active cetirizine (ZyrTEC) 10 mg Tablet, Chewable Take 10 mg by mouth daily. Active carisoprodoL (SOMA) 350 mg tablet 2 Active atorvastatin (LIPITOR) 20 mg tablet 3 Active Omeprazole Magnesium (PriLOSEC) 2.5 mg Susp,Delayed Release for Recon Active Active Problems No known active problems Social History Tobacco Use Types Packs/Day Years Used Date Smoking Tobacco: Never Smokeless Tobacco: Never Alcohol Use Standard Drinks/Week Comments Yes 0 (1 standard drink = 0.6 oz pur e alcohol) Comments Unknown Sex and Gender Information Value Date Recorded Sex Assigned at Not on file Legal Sex Female 3:16 PM CDT Gender Identity Not on file Sexual Orientation Not on file Last Filed Vital Signs Vital Sign Reading Time Taken Comments Blood Pressure 120/72 11/20/2023 1:53 PM DRUG INSPECTOR Pulse - - Temperature - - Respiratory Rate - - Oxygen Saturation - - Inhaled Oxygen Concentration - - Weight 114.8 kg (253 lb) 11/20/2023 1:53 PM DRUG INSPECTOR Height 157.5 cm (5' 2) 11/20/2023 1:53 PM DRUG INSPECTOR Body Mass Index 46.27 11/20/2023 1:53 PM DRUG INSPECTOR Plan of Treatment Health Maintenance Due Date Last Done Comments HEPATITIS B VACCINES (1 of 3 - 19+ 3-dose series) 1994 06/06/2002, 05/11/2002 HPV/Cotest (21-29) 1996 HPV/Cotest (30-65) 2005 CERVICAL CANCER SCREENING 04/11/2011 PAP SMEAR 04/11/2011 04/11/2008 BREAST CANCER SCREENING 2015 DTAP/TDAP/TD VACCINES (2 - Td or Tdap) 03/27/2017 COLORECTAL SCREENING 2020 Colorectal Cancer Screening 2020 FIT-DNA Q 3 years 2020 FIT/FOBT Q 1 year 2020 Flex Sig/CT Colonography Q 5 years 2020 INFLUENZA VACCINE (#1) 2025 ZOSTER VACCINE (1 of 2) 2025 Insurance [facility]
== END 2025-10-29 13:55 | disposition home or self-care (01) ==
LOC: ANHFOHIMG 13:56
PROVIDERS: PCP Family Medicine; Visit Provider Family Medicine
DX: Z12.31 Encounter for screening mammogram for malignant neoplasm of breast (principal)
CPT/HCPCS: 77063; 77067

== ENCOUNTER 2025-11-03 09:44 | Outpatient (CLI) | payer BC, OTHER, SELFPAY ==
[2025-11-03 10:24] LABS: Alanine Aminotransferase 43 U/L (6-35); Albumin Level 4.0 g/dL (3.5-5.1); Alkaline Phosphatase 104 U/L (38-126); Anion Gap 7 mmol/L (4-12); Aspartate Amino Transferase 35 U/L (14-36); Bilirubin,Total 0.4 mg/dL (0.2-1.3); Blood Urea Nitrogen 12 mg/dL (7-17); Calcium 9.2 mg/dL (8.4-10.2); Carbon Dioxide 24 mmol/L (22-30); Chloride 107 mmol/L (98-107); Estimated Glomerular Filt Rate > 60; Glucose 98 mg/dL (65-110); Potassium 4.1 mmol/L (3.4-5.0); Sodium 138 mmol/L (137-145); Total Protein 7.7 g/dL (6.3-8.2)
--- OUTSIDE RECORDS SUMMARY | 2025-11-03 10:57 | XMS_ITS | Clinical Summary ---
Author Organization [facility] Address [address] [place] [phone] Phone Care Team Providers Care Glove Tagger Name Role Phone Unavailable Primary Care Provider [...] Comments Blood Pressure 124/70 10/22/2018 12:01 AM SHOE SALESMAN Pulse 72 10/22/2018 12:01 AM SHOE SALESMAN Temperature - - Respiratory Rate - - Oxygen Saturation - - Inhaled Oxygen Concentration - - Weight 75.8 kg (167 lb) 10/22/2018 12:01 AM SHOE SALESMAN Height 152.4 cm (5') 10/22/2018 12:01 AM SHOE SALESMAN Body Mass Index 32.61 10/22/2018 12:01 AM SHOE SALESMAN Plan of Treatment Health Maintenance Due Date Last Done Comments Influenza Vaccine (#1) 2025
--- OUTSIDE RECORDS SUMMARY | 2025-11-03 10:57 | XMS_ITS | Encounter Summary ---
Author Organization [facility] Address [address] [facility] [place] [address] Care Team Providers Care Veneer Cutter Name Role Phone [address] Primary Care Prov ider Matilde Moreno MD Primary Care Provider + Encounter Details Date Type Department Care Team (Late st Contact Info) Description 08/13/2020 Lab Requisition [facility] DermPath Lab [address] [place] [address] Casimiro Martínez MD [address] [facility] [address] [place] [address] Social History Tobacco Use Types Packs/Day Years [...] AM CDT) Case Report Dermatopathology Report Case: [id number] Authorizing Provider: Casimiro Martínez MD Collected: 08/12/2020 12:00 AM Ordering Location: [facility] Derm[facility] Lab Received: 08/13/2020 08:19 AM Pathologist: Nina Glover MD Specimen: Skin, right medial cheek 0 2:15 PM CDT DERMATOPATHOLOGY LABORATORY Final Diagnosis Specimen A. SKIN, right medial cheek: ANGIOFIBROMA (FIBROUS PAPULE) (D21.0) (see microscopic description) 0 2:15 PM CDT DERMATOPATHOLOGY LABORATORY at 1415 CDT Clinical History Beka hyperplasia vs BCC vs angioma. Path # [id number]. 0 2:15 PM CDT DERMATOPATHOLOGY LABORATORY Gross Description Specimen A: Received is one formalin filled container labeled with the patient's name and designated right medial cheek. The specimen consists of a shave biopsy measuring [id number]. Jar 0. 0 2:15 PM CDT DERMATOPATHOLOGY [...] characteristic determined by the Dermatopathology Laboratory at [facility], directed by Dr. Omar Hammer. These tests need not be, and therefore are not, approved by the [place] Food and Drug Administration. The tests are used for clinical purposes. Billing Codes Specimen Charges Stain Charges 99959 1 0 2:15 PM CDT DERMATOPATHOLOGY LABORATORY Embedded Images 0 2:15 PM CDT DERMATOPATHOLOGY LABORATORY Pathology/Cytolog y TISSUE SPECIMEN FROM SKIN / Unknown 08/12/2020 08/13/2020 8:19 AM CDT us Casimiro Martínez MD LAB - PATHOLOGY/CYTOLOGY ORDER DERICK Final Result DERMATOPATHOLOGY LABORATORY [facility] - Department of Dermatology [address] [phone] documented in this encounter Visit Diagnoses Not on filedocumented in this encounter Care Teams Veneer Cutter Relationship Specialty Start Date End Date [facility] [address] [place] [address] PCP - General 04/24/19 01/24/22 Matilde Moreno MD [address] [place] [address] PCP - General 01/25/22 documented as of this encounter
--- OUTSIDE RECORDS SUMMARY | 2025-11-03 10:57 | XMS_ITS | Clinical Summary ---
Author Organization [facility] Address [address] [place] [address] Care Team Providers Care Metal Painter Name Role Phone Matilde Moreno MD Primary Care Provider + Source Comments [facility],non-owned Affiliates and Associated Physician Practices is amultiple site organization consisting of ambulatory clinics and hospital sitesin [place], [place], [place] and [place]. This disclosure is being madepursuant to the Care Everywhere program and may not contain all information available regarding this patient. Last updated 18.[facility] [employer] Social History Tobacco Use Types Packs/Day Years [...] patient's age to complete this topic Insurance [place] [address] [facility] Care Teams Metal Painter Relationship Specialty Start Date End Date Matilde Moreno MD [address] [place], [place] [phone] PCP - General 01/25/22
--- OUTSIDE RECORDS SUMMARY | 2025-11-03 10:57 | XMS_ITS | Clinical Summary ---
Author Organization [facility] Address [address] [place] [address] Care Team Providers Care Illuminator Name Role Phone Unavailable Primary Care Provider [...]
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
--- OUTSIDE RECORDS SUMMARY | 2025-11-03 10:57 | XMS_ITS | Clinical Summary ---
Author Organization [facility] Address [address] [place] [address] Care Team Providers Care Certified Medical Assistant Name Role Phone Matilde Moreno MD [...] mouth nightly as needed 1 3 Active dw-qxj-prjms-ca lcium carb-K1 400 mcg-500 mg calcium-20 mcg [...] on file Legal Sex Female 11:04 AM DATA ARCHITECT Gender Identity Not on file Sexual Orientation [...] patient's age to complete this topic Insurance [facility] [address] [place] [address] [place] [id number] [facility] [facility] CLAIMS Care Teams Certified Medical Assistant Relationship Specialty Start Date End Date Matilde Moreno MD [address] [facility] [address] [place] [address] PCP - General Family Medicine 07/18/23
--- OUTSIDE RECORDS SUMMARY | 2025-11-03 10:57 | XMS_ITS | Clinical Summary ---
Author Organization [facility] Address [address] [place] [address] Phone Care Team Providers Care Skip Hoist Operator Name Role Phone Unavailable Primary Care Provider [...] 5 Active fluticasone propionate (FLONASE) 50 mcg/spray [place], Suspension nasal inhaler Administer 1 [place] in each nostril daily. Active Vitamin D3-Menaquinone [...] Comments Blood Pressure 120/72 11/20/2023 1:53 PM PARACHUTE MARKER Pulse - - Temperature - - Respiratory Rate - - Oxygen Saturation - - Inhaled Oxygen Concentration - - Weight 114.8 kg (253 lb) 11/20/2023 1:53 PM PARACHUTE MARKER Height 157.5 cm (5' 2) 11/20/2023 1:53 PM PARACHUTE MARKER Body Mass Index 46.27 11/20/2023 1:53 PM PARACHUTE MARKER Plan of Treatment Health Maintenance Due Date [...] VACCINE (1 of 2) 2025 Insurance [facility] Address: [facility] [address] [place] [address]
== END 2025-11-03 09:45 | disposition home or self-care (01) ==
PROVIDERS: PCP Family Medicine; Visit Provider Physician Assistant Medical
DX: R74.01 Elevation of levels of liver transaminase levels (principal)
CPT/HCPCS: 36415; 80053